=== PATIENT | male | born 1965 | race Caucasian/White ===

== ENCOUNTER 2021-12-23 16:09 | Inpatient (IN) | payer MEDICAID ==
[~2021-12-23] VITALS: Ht 167.6 cm; Wt 68.5 kg
[2021-12-23 17:06] LABS: HEMATOCRIT. 41.8 % (42.0-52.0); HEMOGLOBIN. 13.8 g/dL (14.0-18.0); MEAN CORPUSCULAR HEMOGLOBIN 30.2 pg (28.0-32.0); MEAN CORPUSCULAR VOLUME 91.1 fL (80.0-94.0); MEAN PLATELET VOLUME 7.7 fl (7.4-10.4); PLATELET 279 x1000/uL (130-400); RED BLOOD CELL COUNT 4.58 mill/uL (4.7-6.1); RED CELL DISTRIBUTION WIDTH 14.1 % (11.6-14.6)
[2021-12-23 17:20] LABS: CHLORIDE 107 mEq/L (98-107)
[2021-12-23 17:24] LABS: PROTHROMBIN TIME 10.3 sec (9.6-11.0)
[2021-12-23] MEDS ORDERED: MORPHINE SULFATE 4 MG/ML CPJ (NOT FOR IM USE) IV ONE (17:45)
[2021-12-23 17:47] LABS: PLATELET ESTIMATE NORMAL
[2021-12-23] MEDS ORDERED: SODIUM CHLORIDE 0.9% 1000ML BAG (SEPSIS BOLUS) IV ONE (18:15)
[2021-12-23] MEDS ORDERED: VANCOMYCIN 1G PREMIX 200 ML IV ONE (18:15)
[2021-12-23] MEDS ORDERED: PIPERACILLIN/TAZ 3.375G PREMIX 50 ML IV ONE (18:15)
[2021-12-23 18:36] LABS: CLARITY URINE CLEAR (CLEAR); COLOR URINE YELLOW (YELLOW); KETONES URINE 3+ (NEGATIVE); LEUKOCYTE ESTERASE URINE NEGATIVE (NEGATIVE); NITRITE URINE NEGATIVE (NEGATIVE); OCCULT BLOOD URINE NEGATIVE (NEGATIVE); PROTEIN URINE NEGATIVE (NEGATIVE); SPECIFIC GRAVITY URINE 1.014 (1.005-1.030)
[2021-12-23] MEDS ORDERED: LORAZEPAM 2MG/ML CPJ IV PRN (20:15)
[2021-12-23] MEDS ORDERED: ONDANSETRON HCL 4MG/2ML INJ IV PRN (20:15)
[2021-12-23] MEDS ORDERED: DIPHENHYDRAMINE 50MG/ML VIAL IV PRN (20:15)
[2021-12-23] MEDS: MORPHINE SULFATE 4 MG/ML CPJ (NOT FOR IM USE) IV PRN (20:36)
[2021-12-23] MEDS: SODIUM CHL 0.45% + KCL 20MEQ/L 1,000 ML IV SCH (22:58)
[2021-12-24] VITALS: BP 148/84
[2021-12-24] MEDS: MORPHINE SULFATE 4 MG/ML CPJ (NOT FOR IM USE) IV PRN ×3 (01:23→17:06)
[2021-12-24] MEDS ORDERED: INFLUENZA VACCINE 05/PF 0.5 ML SYRINGE IM ONE (03:15)
[2021-12-24 04:00] VITALS: BP 118/71
[2021-12-24] MEDS: SODIUM CHL 0.45% + KCL 20MEQ/L 1,000 ML IV SCH ×3 (04:52→23:29)
[2021-12-24] MEDS: PIPERACILLIN/TAZOBACTAM 3.375 G in DEXTROSE 5% WATER 50 ML IV SCH ×3 (05:54→23:26)
[2021-12-24] MEDS ORDERED: PIPERACILLIN/TAZOBACTAM 3.375 G in DEXTROSE 5% WATER 50 ML IV SCH (06:00)
[2021-12-24 07:19] LABS: BASOPHILS % 0.1 % (0.0-2.0); EOSINOPHILS % 0.1 % (0.0-5.0); HEMATOCRIT. 39.1 % (42.0-52.0); HEMOGLOBIN. 13.1 g/dL (14.0-18.0); LYMPHOCYTES % 8.8 % (20.0-50.0); MEAN CORPUSCULAR HEMOGLOBIN 30.5 pg (28.0-32.0); MEAN CORPUSCULAR VOLUME 90.9 fL (80.0-94.0); MEAN PLATELET VOLUME 7.8 fl (7.4-10.4); MONOCYTES % 6.7 % (2.0-8.0); NEUTROPHILS % 84.3 % (40.0-76.0); PLATELET 293 x1000/uL (130-400); RED CELL DISTRIBUTION WIDTH 14.1 % (11.6-14.6)
[2021-12-24 07:35] LABS: CHLORIDE 107 mEq/L (98-107)
[2021-12-24 07:47] LABS: PHOSPHORUS 2.9 mg/dL (2.5-4.9)
[2021-12-24 08:00] VITALS: BP 134/76
[2021-12-24] MEDS: PANTOPRAZOLE SODIUM 40 MG/VIAL IV SCH (10:48)
[2021-12-24 12:00] VITALS: BP 123/75
[2021-12-24 16:00] VITALS: BP 135/78
[2021-12-24 20:00] VITALS: BP 128/69
[2021-12-25] VITALS: BP 124/64
[2021-12-25 04:00] VITALS: BP 115/71
[2021-12-25] MEDS: SODIUM CHL 0.45% + KCL 20MEQ/L 1,000 ML IV SCH ×3 (07:31→21:24)
[2021-12-25] MEDS: PIPERACILLIN/TAZOBACTAM 3.375 G in DEXTROSE 5% WATER 50 ML IV SCH ×3 (07:31→21:24)
[2021-12-25 08:00] VITALS: BP 143/78
[2021-12-25] MEDS: MORPHINE SULFATE 4 MG/ML CPJ (NOT FOR IM USE) IV PRN (08:25)
[2021-12-25] MEDS: PANTOPRAZOLE SODIUM 40 MG/VIAL IV SCH (10:15)
[2021-12-25 12:00] VITALS: BP 137/77
[2021-12-25 16:00] VITALS: BP 136/85
[2021-12-25] MEDS ORDERED: NALOXONE HCL 0.4MG/ML VIAL IV PRN (17:00)
[2021-12-25 20:00] VITALS: BP 127/65
[2021-12-26] VITALS (7 sets, daily range): BP systolic 124–156; BP diastolic 64–90
[2021-12-26] MEDS: PIPERACILLIN/TAZOBACTAM 3.375 G in DEXTROSE 5% WATER 50 ML IV SCH ×3 (05:21→21:47)
[2021-12-26] MEDS: PANTOPRAZOLE SODIUM 40 MG/VIAL IV SCH (09:44)
[2021-12-26] MEDS: SODIUM CHL 0.45% + KCL 20MEQ/L 1,000 ML IV SCH ×2 (14:06→20:30)
[2021-12-26 20:56] LABS: BASOPHILS % 0.3 % (0.0-2.0); EOSINOPHILS % 7.1 % (0.0-5.0); HEMATOCRIT. 39.3 % (42.0-52.0); HEMOGLOBIN. 13.1 g/dL (14.0-18.0); LYMPHOCYTES % 29.7 % (20.0-50.0); MEAN CORPUSCULAR HEMOGLOBIN 30.6 pg (28.0-32.0); MEAN PLATELET VOLUME 7.9 fl (7.4-10.4); MONOCYTES % 12.2 % (2.0-8.0); NEUTROPHILS % 50.7 % (40.0-76.0); PLATELET 319 x1000/uL (130-400); RED BLOOD CELL COUNT 4.27 mill/uL (4.7-6.1); RED CELL DISTRIBUTION WIDTH 14.1 % (11.6-14.6)
[2021-12-26 21:47] LABS: CHLORIDE 105 mEq/L (98-107)
[2021-12-26] MEDS: MORPHINE SULFATE 4 MG/ML CPJ (NOT FOR IM USE) IV PRN (21:48)
[2021-12-27] VITALS: BP 126/70
[2021-12-27 04:00] VITALS: BP 138/70
[2021-12-27] MEDS: PIPERACILLIN/TAZOBACTAM 3.375 G in DEXTROSE 5% WATER 50 ML IV SCH ×2 (05:01→13:24)
[2021-12-27] MEDS: SODIUM CHL 0.45% + KCL 20MEQ/L 1,000 ML IV SCH ×2 (05:02→13:24)
[2021-12-27 08:00] VITALS: BP 145/86
[2021-12-27] MEDS: PANTOPRAZOLE SODIUM 40 MG/VIAL IV SCH (08:54)
[2021-12-27 12:00] VITALS: BP 136/68
[2021-12-27 16:00] VITALS: BP 134/66
[2021-12-27 20:00] VITALS: BP 148/84
[2021-12-28 08:00] VITALS: BP 121/73
[2021-12-28] MEDS ORDERED: PANTOPRAZOLE 40MG DR TABLET PO SCH (09:00)
[2021-12-28 09:28] LABS: BASOPHILS % 0.5 % (0.0-2.0); EOSINOPHILS % 3.1 % (0.0-5.0); HEMATOCRIT. 40.6 % (42.0-52.0); LYMPHOCYTES % 33.1 % (20.0-50.0); MEAN CORPUSCULAR HEMOGLOBIN 31.1 pg (28.0-32.0); MEAN CORPUSCULAR VOLUME 90.5 fL (80.0-94.0); MEAN PLATELET VOLUME 7.7 fl (7.4-10.4); MONOCYTES % 12.9 % (2.0-8.0); NEUTROPHILS % 50.4 % (40.0-76.0); PLATELET 389 x1000/uL (130-400); RED BLOOD CELL COUNT 4.49 mill/uL (4.7-6.1)
[2021-12-28 11:53] LABS: CHLORIDE 105 mEq/L (98-107)
[2021-12-28 12:00] VITALS: BP 141/85
[2021-12-28 16:00] VITALS: BP 144/84
[2021-12-28 17:13] VITALS: BP 144/84
[2022-01-04] MEDS ORDERED: SODIUM CHLORIDE 0.9% 100 ML IV ONE (01:30)
== END 2021-12-28 18:06 | disposition home or self-care (01) | DRG 282 ==
LOC: ER 16:09 → 6EST 20:06 → EDBEDREQTM 20:08 → EDBEDREQ 20:08 → ENRESERV 20:54
PROVIDERS: ADMIT Internal Medicine; ATTEND Internal Medicine
DX: K85.10 Biliary acute pancreatitis without necrosis or infection (principal); E44.1 Mild protein-calorie malnutrition; K76.0 Fatty (change of) liver, not elsewhere classified; R65.10 Systemic inflammatory response syndrome (SIRS) of non-infectious origin without acute organ dysfunction; K80.10 Calculus of gallbladder with chronic cholecystitis without obstruction; K76.89 Other specified diseases of liver; D72.829 Elevated white blood cell count, unspecified; D72.825 Bandemia; N28.1 Cyst of kidney, acquired; N40.0 Benign prostatic hyperplasia without lower urinary tract symptoms; Z68.24 Body mass index [BMI] 24.0-24.9, adult; F17.210 Nicotine dependence, cigarettes, uncomplicated
CPT/HCPCS: 36415; 74176; 74181; 76700; 78227; 80048; 80053; 80076; 81003; 82150; 83605; 83735; 84100; 85025; 90686; 99285; A9537; C1893; C9113; J2270; J2543; J3370; J3480; J7030; J7060

== ENCOUNTER 2022-01-03 15:35 | Inpatient (IN) | payer MEDICAID ==
[~2022-01-03] VITALS: Ht 170.2 cm; Wt 63.5 kg
[2022-01-03 21:29] LABS: HEMATOCRIT 38.6 % (42.0-52.0); MEAN CORPUSCULAR HEMOGLOBIN 30.7 pg (28.0-32.0); PLATELET 529 x1000/uL (130-400); RED BLOOD CELL COUNT 4.24 mill/uL (4.7-6.1); RED CELL DISTRIBUTION WIDTH 13.6 % (11.6-14.6)
[2022-01-03 21:35] LABS: CHLORIDE 100 mEq/L (98-107)
[2022-01-03] MEDS ORDERED: SODIUM CHLORIDE 0.9% 1000ML BAG (SEPSIS BOLUS) IV ONE (23:00)
[2022-01-03] MEDS ORDERED: MORPHINE SULFATE 4 MG/ML CPJ (NOT FOR IM USE) IV ONE (23:00)
[2022-01-03] MEDS ORDERED: PIPERACILLIN/TAZ 3.375G PREMIX 50 ML IV NR (23:00)
[2022-01-03] MEDS ORDERED: PIPERACILLIN/TAZOBACTAM 3.375GM/50ML PREMIX IV ONE (23:00)
[2022-01-03] MEDS ORDERED: VANCOMYCIN 1G PREMIX 200 ML IV NR (23:00)
[2022-01-04] MEDS ORDERED: POTASSIUM CHLORIDE 20MEQ TABLET SR PO NR (00:45)
[2022-01-04] MEDS ORDERED: GUAIFENESIN 200MG/10ML SUGAR FREE UDC PO PRN (01:30)
[2022-01-04] MEDS ORDERED: MAGNESIUM/ALUMINUM HYDROXIDE/SIMETHICONE 30ML UDC PO PRN (01:30)
[2022-01-04] MEDS ORDERED: ACETAMINOPHEN 325MG TABLET PO PRN ×2 (01:30)
[2022-01-04] MEDS ORDERED: IPRATROPIUM/ALBUTEROL 0.5-3(2.5)MG/3ML NEB HHN PRN (01:30)
[2022-01-04] MEDS ORDERED: CLONIDINE 0.1MG TABLET PO PRN (01:30)
[2022-01-04] MEDS ORDERED: SODIUM CHLORIDE 0.9% 1,000 ML IV ONE (01:45)
[2022-01-04] MEDS: MORPHINE SULFATE 2 MG/ML CPJ (NOT FOR IM USE) IV PRN ×2 (03:31→10:11)
[2022-01-04 05:41] LABS: MEAN CORPUSCULAR HEMOGLOBIN 30.8 pg (28.0-32.0); MEAN CORPUSCULAR VOLUME 90.3 fL (80.0-94.0); PLATELET 467 x1000/uL (130-400); RED BLOOD CELL COUNT 3.88 mill/uL (4.7-6.1); RED CELL DISTRIBUTION WIDTH 13.8 % (11.6-14.6)
[2022-01-04 05:53] LABS: CHLORIDE 106 mEq/L (98-107)
[2022-01-04 05:54] LABS: PLATELET ESTIMATE NORMAL
[2022-01-04] MEDS ORDERED: PIPERACILLIN/TAZOBACTAM 3.375G in DEXT 5% WATER 50ML IV SCH (06:00)
[2022-01-04] MEDS ORDERED: PIPERACILLIN/TAZOBACTAM 3.375GM/50ML PREMIX IV SCH (06:00)
[2022-01-04 08:00] VITALS: BP 148/73
[2022-01-04] MEDS ORDERED: NALOXONE HCL 0.4MG/ML VIAL IV PRN (08:00)
[2022-01-04] MEDS: PANTOPRAZOLE SODIUM 40 MG/VIAL IV SCH (10:11)
[2022-01-04] MEDS: ONDANSETRON HCL 4MG/2ML INJ IV PRN (10:12)
[2022-01-04] MEDS ORDERED: ENOXAPARIN 40MG/0.4ML SYR SUBCUT NR (11:15)
[2022-01-04] MEDS: DEXT 5%/0.45% NACL 1000ML 1,000 ML IV SCH ×3 (12:56→22:22)
[2022-01-04 16:00] VITALS: BP 141/73
[2022-01-04 18:11] LABS: D-DIMER 4.49 mg/L FEU (<0.50); INR 1.1; PROTHROMBIN TIME 11.9 sec (9.6-11.0)
[2022-01-04 20:00] VITALS: BP 134/73
[2022-01-04] MEDS: PIPERACILLIN/TAZ 3.375G PREMIX 50 ML IV SCH ×2 (20:10→20:14)
[2022-01-05] VITALS: BP 126/75
[2022-01-05 04:00] VITALS: BP 108/81
[2022-01-05] MEDS: PIPERACILLIN/TAZ 3.375G PREMIX 50 ML IV SCH ×3 (05:13→21:29)
[2022-01-05] MEDS: DEXT 5%/0.45% NACL 1000ML 1,000 ML IV SCH (07:34)
[2022-01-05 07:52] LABS: BASOPHILS % 0.2 % (0.0-2.0); EOSINOPHILS % 3.2 % (0.0-5.0); HEMATOCRIT. 35.2 % (42.0-52.0); LYMPHOCYTES % 10.2 % (20.0-50.0); MEAN CORPUSCULAR HEMOGLOBIN 30.5 pg (28.0-32.0); MEAN CORPUSCULAR VOLUME 89.6 fL (80.0-94.0); MEAN PLATELET VOLUME 7.3 fl (7.4-10.4); MONOCYTES % 8.3 % (2.0-8.0); NEUTROPHILS % 78.1 % (40.0-76.0); PLATELET 457 x1000/uL (130-400); RED BLOOD CELL COUNT 3.93 mill/uL (4.7-6.1); RED CELL DISTRIBUTION WIDTH 13.8 % (11.6-14.6)
[2022-01-05 08:00] VITALS: BP 128/79
[2022-01-05] MEDS ORDERED: INFLUENZA VACCINE 05/PF 0.5 ML SYRINGE IM ONE (09:00)
[2022-01-05] MEDS: PANTOPRAZOLE SODIUM 40 MG/VIAL IV SCH (10:11)
[2022-01-05] MEDS: ENOXAPARIN 40MG/0.4ML SYR SUBCUT SCH (10:11)
[2022-01-05 10:17] LABS: CHLORIDE 104 mEq/L (98-107)
[2022-01-05 12:00] VITALS: BP 147/79
[2022-01-05] MEDS: KCL 20MEQ/100ML PREMIX 100 ML IV SCH ×2 (14:50→14:52)
[2022-01-05 16:00] VITALS: BP 133/72
[2022-01-05] MEDS: HYDROCODONE/ACETAMINOPHEN 5/325MG TABLET PO PRN (17:29)
[2022-01-05 20:00] VITALS: BP 126/75
[2022-01-06] VITALS: BP 128/85
[2022-01-06] MEDS: DEXT 5%/0.45% NACL 1000ML 1,000 ML IV SCH ×3 (00:37→13:21)
[2022-01-06 04:00] VITALS: BP 115/75
[2022-01-06] MEDS: PIPERACILLIN/TAZ 3.375G PREMIX 50 ML IV SCH ×3 (05:13→21:26)
[2022-01-06 08:00] VITALS: BP 118/77
[2022-01-06 08:02] LABS: CHLORIDE 105 mEq/L (98-107)
[2022-01-06 08:04] LABS: BASOPHILS % 0.5 % (0.0-2.0); HEMATOCRIT. 36.5 % (42.0-52.0); HEMOGLOBIN. 12.8 g/dL (14.0-18.0); LYMPHOCYTES % 21.2 % (20.0-50.0); MEAN CORPUSCULAR HEMOGLOBIN 31.3 pg (28.0-32.0); MEAN PLATELET VOLUME 8.5 fl (7.4-10.4); MONOCYTES % 14.5 % (2.0-8.0); NEUTROPHILS % 57.8 % (40.0-76.0); PLATELET 411 x1000/uL (130-400); RED CELL DISTRIBUTION WIDTH 13.8 % (11.6-14.6)
[2022-01-06] MEDS: PANTOPRAZOLE SODIUM 40 MG/VIAL IV SCH (10:18)
[2022-01-06] MEDS: ENOXAPARIN 40MG/0.4ML SYR SUBCUT SCH (10:19)
[2022-01-06 12:00] VITALS: BP 117/74
[2022-01-06] MEDS ORDERED: KCL 20MEQ/100ML PREMIX 100 ML IV SCH (12:00)
[2022-01-06 16:00] VITALS: BP 118/77
[2022-01-06 20:00] VITALS: BP 169/95
[2022-01-07] VITALS: BP 127/88
[2022-01-07] MEDS: HYDROCODONE/ACETAMINOPHEN 5/325MG TABLET PO PRN (01:13)
[2022-01-07] MEDS: DEXT 5%/0.45% NACL 1000ML 1,000 ML IV SCH ×3 (02:32→22:06)
[2022-01-07 04:00] VITALS: BP 112/71
[2022-01-07] MEDS: PIPERACILLIN/TAZ 3.375G PREMIX 50 ML IV SCH ×3 (06:12→21:58)
[2022-01-07 08:00] VITALS: BP 138/84
[2022-01-07] MEDS: PANTOPRAZOLE SODIUM 40 MG/VIAL IV SCH (08:23)
[2022-01-07] MEDS: ENOXAPARIN 40MG/0.4ML SYR SUBCUT SCH (08:29)
[2022-01-07 09:25] LABS: BASOPHILS % 0.7 % (0.0-2.0); EOSINOPHILS % 3.8 % (0.0-5.0); HEMOGLOBIN. 12.3 g/dL (14.0-18.0); LYMPHOCYTES % 30.2 % (20.0-50.0); MEAN CORPUSCULAR HEMOGLOBIN 30.7 pg (28.0-32.0); MEAN CORPUSCULAR VOLUME 89.8 fL (80.0-94.0); MEAN PLATELET VOLUME 7.3 fl (7.4-10.4); MONOCYTES % 13.8 % (2.0-8.0); NEUTROPHILS % 51.5 % (40.0-76.0); PLATELET 518 x1000/uL (130-400); RED BLOOD CELL COUNT 4.01 mill/uL (4.7-6.1)
[2022-01-07 10:37] LABS: CHLORIDE 103 mEq/L (98-107)
[2022-01-07 12:00] VITALS: BP 147/85
[2022-01-07 16:00] VITALS: BP 140/85
[2022-01-07 20:00] VITALS: BP 152/94
[2022-01-07] MEDS: ONDANSETRON HCL 4MG/2ML INJ IV PRN (21:58)
[2022-01-07] MEDS: MORPHINE SULFATE 2 MG/ML CPJ (NOT FOR IM USE) IV PRN (21:58)
[2022-01-08] VITALS: BP 97/58
[2022-01-08 04:00] VITALS: BP 126/79
[2022-01-08] MEDS: DEXT 5%/0.45% NACL 1000ML 1,000 ML IV SCH ×2 (04:15→12:15)
[2022-01-08] MEDS: HYDROCODONE/ACETAMINOPHEN 5/325MG TABLET PO PRN ×2 (06:03→10:19)
[2022-01-08] MEDS: PIPERACILLIN/TAZ 3.375G PREMIX 50 ML IV SCH (06:04)
[2022-01-08 08:00] VITALS: BP 129/71
[2022-01-08] MEDS: ENOXAPARIN 40MG/0.4ML SYR SUBCUT SCH (10:19)
[2022-01-08] MEDS: PANTOPRAZOLE SODIUM 40 MG/VIAL IV SCH (10:19)
[2022-01-08] MEDS ORDERED: OMEP40CA20 MT (11:43)
[2022-01-08] MEDS ORDERED: AMOX1TAB16 PO (11:43)
[2022-01-08] MEDS: MORPHINE SULFATE 2 MG/ML CPJ (NOT FOR IM USE) IV PRN (12:45)
[2022-01-08] MEDS ORDERED: PIPERACILLIN/TAZOBACTAM 3.375 G in DEXTROSE 5% WATER 50 ML IV SCH (14:00)
== END 2022-01-08 16:30 | disposition home or self-care (01) | DRG 720 ==
LOC: ER 15:35 → MICUSO 01-04 00:16 → 7WST 01-04 08:00
PROVIDERS: ADMIT Internal Medicine; ATTEND Internal Medicine
DX: A41.9 Sepsis, unspecified organism (principal); K85.10 Biliary acute pancreatitis without necrosis or infection; K80.00 Calculus of gallbladder with acute cholecystitis without obstruction; K76.0 Fatty (change of) liver, not elsewhere classified; K76.89 Other specified diseases of liver; D75.839 Thrombocytosis, unspecified; E78.5 Hyperlipidemia, unspecified; E87.6 Hypokalemia; F17.210 Nicotine dependence, cigarettes, uncomplicated; N28.1 Cyst of kidney, acquired; D64.9 Anemia, unspecified; E78.1 Pure hyperglyceridemia; R74.01 Elevation of levels of liver transaminase levels; E80.6 Other disorders of bilirubin metabolism
CPT/HCPCS: 36415; 74176; 74181; 76700; 80048; 80053; 80061; 80076; 83605; 83615; 83735; 84145; 85025; 85027; 85379; 90686; 93005; 93970; 99291; C9113; J1650; J2270; J2405; J2543; J3370; J3480; J7030; J7060